=== PATIENT | male | born 1990 | race Asian ===

== ENCOUNTER 2020-06-17 22:32 | Emergency (ER) | payer SELFPAY ==
[~2020-06-17] VITALS: Ht 172.7 cm; Wt 79.4 kg
--- NOTE | 2020-06-17 22:40 | NUR ---
Patient walked into Er c/o being bitten by a dog on right hand about 4hrs [employer]. Two puncture wound noted on hand. Patient able to move finger freely. Patient states that soon after the incident patient washed his hand with soap and water and betadine.
--- NOTE | 2020-06-17 22:50 | NUR ---
MD Rodriguez in room to do MSE.
[2020-06-17] MEDS ORDERED: AMOX-427 PO (22:58)
[2020-06-17] MEDS: TDAP DIPH,PERTUSS,TET VAC/PF 0.5 ML DISP.SYRIN IM ONE (23:08)
[2020-06-17] MEDS ORDERED: TDAP DIPH,PERTUSS,TET VAC/PF 0.5 ML DISP.SYRIN IM ONE (23:12)
[2020-06-17 23:17] VITALS: BP 138/77
--- NOTE | 2020-06-17 23:17 | NUR ---
Patient discharged to home in stable condition. Written and verbal after care instructions given. Patient verbalizes understanding of instructions. Stressed follow up or return to ER for worsening s/s.
== END 2020-06-17 23:17 | disposition home or self-care (01) ==
LOC: ER 22:36
DX: S61.511A Laceration without foreign body of right wrist, initial encounter (principal); W54.0XXA Bitten by dog, initial encounter; Y92.89 Other specified places as the place of occurrence of the external cause; Z23 Encounter for immunization
CPT/HCPCS: 90715; A4663